=== PATIENT | female | born 1995 | race Caucasian/White ===

== ENCOUNTER 2018-08-31 00:14 | Emergency (ER) | payer MEDICAID ==
[2018-08-31 00:18] VITALS: BP 132/82
[2018-08-31] MEDS ORDERED: Take Home: Hydrocortisone/Neomycin/Polymyxin B Otic Susp 10 ML, 1 Btle Pac EARLF ONE (00:18)
--- NOTE | 2018-08-31 00:26 | EDM.PDOC ---
ED HPI GENERAL MEDICAL PROBLEM - General Chief Complaint: ENT Problem Stated Complaint: ear pain Time Seen by Provider: 08/31/18 00:15 Source of Information: Reports: Patient, RN, RN Notes Reviewed History Limitations: Reports: No Limitations - History of Present Illness INITIAL COMMENTS - FREE TEXT/NARRATIVE: Patient presents the emergency room at [facility] complaining of left ear pain that started around 11 PM this evening. The patient has had upper respiratory symptoms for about the past week. The patient denies any right ear problems. The patient has a dry nonproductive cough. No close family members or contacts with similar symptoms. The patient is staying well-hydrated with good by mouth fluid intake. The patient denies any sore throat. The patient does not have any sinus pressure or pain. The patient does not have any eye symptomatology. No drainage from the left ear. No injury or trauma to the left ear. The patient has not tried any [id number] cold or flu medication. The patient has not tried any Tylenol and/or Advil for her pain. Onset Date: 08/30/18 Onset Time: 23:00 Left Ear Pain Score (Numeric/FACES): 6 - Related Data Allergies Allergy/AdvReac Type Severity Reaction Status Date / Time No Known Drug Allergies Allergy Other Verified 08/31/18 00:16 Home Meds: Home Meds . [No Known Home Meds] 04/03/14 [History] Past Medical History - Past Health History Medical/Surgical History: Denies Medical/Surgical History ED ROS ENT - Review of Systems Review Of Systems: See Below Constitutional: Denies: Fever, Chills HEENT: Reports: Ear Pain. Denies: Ear Discharge, Eye Discharge, Rhinitis, Sinus Problem, Throat Pain, Throat Swelling Respiratory: Denies: Shortness of Breath, Cough Cardiovascular: Denies: Chest Pain, Palpitations Skin: Reports: No Symptoms Neurological: Reports: No Symptoms ED EXAM, ENT - Physical Exam Exam: See Below Exam Limited By: No Limitations General Appearance: Alert, No Apparent Distress Eye Exam: Bilateral Eye: Normal Inspection Ears: Canal Material, TM Bulging. No: Canal Discharge, TM Perforation Nose: Normal Inspection Mouth/Throat: Normal Inspection, Normal Oropharynx Neck: Supple Respiratory/Chest: No Respiratory Distress, Lungs Clear, Normal Breath Sounds Cardiovascular: Normal Peripheral Pulses, Regular Rate, Rhythm Neurological: Alert, Oriented Skin: Warm, Dry, Intact, Normal Color Course - Vital Signs Last Recorded V/S: Last Vital Signs Temp 37.1 C 08/31/18 00:16 Pulse 100 08/31/18 00:16 Resp 18 08/31/18 00:16 BP 132/82 08/31/18 00:16 Pulse Ox 96 08/31/18 00:16 - Orders/Labs/Meds Orders: Active Orders 24 hr Category Date Time Status Hydrocort/Neomycin/Polymyxin B [Take Home: Hydrocort/ Med 08/31/18 00:18 Once Neomycin/Polymy B, 1 Btl] 1 packet EARLF TID ONE Departure - Departure Time of Disposition: 00:24 Disposition: Home, Self-Care 01 Condition: Good Clinical Impression: Otitis media Qualifiers: Otitis media type: suppurative Chronicity: acute Laterality: left Recurrence: non-recurrent Spontaneous tympanic membrane rupture: without spontaneous rupture Qualified Code(s): H66.002 - Acute suppurative otitis media without spontaneous rupture of ear drum, left ear - Discharge Information *PRESCRIPTION DRUG MONITORING PROGRAM REVIEWED*: Not Applicable *COPY OF PRESCRIPTION DRUG MONITORING REPORT IN PATIENT CHRISTIN: Not Applicable Instructions: Ear Drops, Adult, Otitis Media, Adult Additional Instructions: 1. Stay well hydrated and rest 2. Use drops three times a day for 7 days 3. May alternate Tylenol/Advil as needed for pain 4. Use heating pad to help sooth the ear 5. See your PCP as symptoms warrant - Problem List Review Problem List Initiated/Reviewed/Updated: Yes - My Orders Last 24 Hours: My Active Orders 08/31/18 00:18 Hydrocort/Neomycin/Polymyxin B [Take Home: Hydrocort/Neomycin/Polymy B, 1 Btl] 1 packet EARLF TID ONE - Assessment/Plan Last 24 Hours: My Active Orders 08/31/18 00:18 Hydrocort/Neomycin/Polymyxin B [Take Home: Hydrocort/Neomycin/Polymy B, 1 Btl] 1 packet EARLF TID ONE Assessment:: Left ear otitis media without effusion Plan: Will start patient on Cortisporin 3 drops TID for 7 days. Recommend not to use any Q-tips or other foreign objects in either ear. Take Advil or Tylenol for pain. use heating pad to left ear. See PCP as symptoms warrant.
== END 2018-08-31 00:38 | disposition home or self-care (01) ==
LOC: VM.ED 00:14
DX: H66.002 Acute suppurative otitis media without spontaneous rupture of ear drum, left ear (principal)
CPT/HCPCS: 99282; A9270-GY